=== PATIENT | male | born 1985 | race African-American/Black ===

== ENCOUNTER 2016-11-16 11:39 | Emergency (ER) | payer OTHER ==
[2016-11-16] MEDS ORDERED: NORMAL SALINE 1000 ML 1,000 ML IV ONE (12:11)
--- NOTE | 2016-11-16 12:13 | ER Document Report ---
ED Medical Screen (RME) - General Chief Complaint: Pain All Over Stated Complaint: CRAMPING ALL OVER Time Seen by Provider: 11/16/16 12:10 Mode of Arrival: Ambulatory Information source: Patient TRAVEL OUTSIDE OF THE [place] IN LAST 30 DAYS: No - HPI Patient complains to provider of: cramping all over, weak Onset: Yesterday - pt has been working outdoors in the heat and feels like he's taking in adequate fluids but still feels thirsty and has been cramping in arms and legs - Related Data Allergies/Adverse Reactions: No Known Allergies Allergy (Verified 11/16/16 11:49) Past Medical History - Social History Chew tobacco use (# tins/day): No Frequency of alcohol use: Occasional Drug Abuse: None - Past Medical History Cardiac Medical History: Reports: Hx Hypertension Neurological Medical History: Reports: Hx Migraine Renal/ Medical History: Denies: Hx Peritoneal Dialysis Musculoskeltal Medical History: Reports Hx Musculoskeletal Trauma - Back pain from previous injuries Surgical Hx: Negative - Immunizations Hx Diphtheria, Pertussis, Tetanus Vaccination: No Physical Exam - Vital signs Vitals: Temp Pulse Resp BP Pulse Ox 97.8 F 81 22 H 135/91 H 99 11/16/16 11:50 11/16/16 11:50 11/16/16 11:50 11/16/16 11:50 11/16/16 11:50 Course - Vital Signs Vital signs: Temp Pulse Resp BP Pulse Ox 97.8 F 81 22 H 135/91 H 99 11/16/16 11:50 11/16/16 11:50 11/16/16 11:50 11/16/16 11:50 11/16/16 11:50
[2016-11-16 12:55] LABS: ABSOLUTE EOSINOPHILS # (AUTO) 0.2 10^3/uL (0.0-0.6); ABSOLUTE LYMPHOCYTES (AUTO) 2.4 10^3/uL (0.5-4.7); ABSOLUTE MONOCYTES (AUTO) 0.6 10^3/uL (0.1-1.4); ABSOLUTE NEUT (AUTO) 4.1 10^3/uL (1.7-8.2); BASOPHILS % (AUTO) 0.7 % (0-2); EOSINOPHILS % (AUTO) 2.8 % (0-6); HEMOGLOBIN 14.9 g/dL (13.5-17.0); HGB HCT DIFFERENCE -0.3; LYMPHOCYTES % (AUTO) 33.1 % (13-45); MEAN CORPUSCULAR HEMOGLOBIN 27.6 pg (27.0-33.4); MEAN CORPUSCULAR VOLUME 84 fl (80-97); MONOCYTES % (AUTO) 7.9 % (3-13); RED BLOOD COUNT 5.39 10^6/uL (4.35-5.55); RED CELL DISTRIBUTION WIDTH 14.3 % (11.5-14.0); SEGMENTED NEUTROPHILS % (AUTO) 55.5 % (42-78); WHITE BLOOD COUNT 7.3 10^3/uL (4.0-10.5)
[2016-11-16 13:07] LABS: ADD ON TESTING BLD IN LAB ACKNOWLEDGE
--- NOTE | 2016-11-16 13:08 | ER Document Report ---
ED General - General Mode of Arrival: Ambulatory Information source: Patient TRAVEL OUTSIDE OF THE [place] IN LAST 30 DAYS: No - HPI Onset: Yesterday - Refer to HPI notes Similar symptoms previously: No Recently seen / treated by doctor: No <FAITH AVALOS - Last Filed: 11/16/16 13:15> <NASH VICKERS - Last Filed: 11/16/16 14:34> - General Chief Complaint: Pain All Over Stated Complaint: CRAMPING ALL OVER Time Seen by Provider: 11/16/16 12:10 Notes: Patient is a 31-year-old male presented to the emergency department for body aches and cramping. Patient also complains of nausea and feeling thirsty. Patient symptoms onset yesterday and continued today. Patient states he has been drinking of water however he has decreased urination throughout the day. Patient works with [employer] and has been working outside this week. Patient denies any vomiting. Patient complains of muscle cramping to his arms and legs. Patient has a history of hypertension and sleep-apnea. Patient has no known allergies. (FAITH AVALOS) - Related Data Allergies/Adverse Reactions: No Known Allergies Allergy (Verified 11/16/16 11:49) Past Medical History - General Information source: Patient - Social History Smoking Status: Never Smoker Cigarette use (# per day): No Chew tobacco use (# tins/day): No Frequency of alcohol use: Occasional Drug Abuse: None Family History: None Patient has suicidal ideation: No Patient has homicidal ideation: No - Past Medical History Cardiac Medical History: Reports: Hx Hypertension Neurological Medical History: Reports: Hx Migraine Musculoskeltal Medical History: Reports Hx Musculoskeletal Trauma - Back pain from previous injuries Surgical Hx: Negative - Immunizations Hx Diphtheria, Pertussis, Tetanus Vaccination: No <FAITH AVALOS - Last Filed: 11/16/16 13:15> Review of Systems - Review of Systems Constitutional: See HPI EENT: No symptoms reported Cardiovascular: No symptoms reported Respiratory: No symptoms reported Gastrointestinal: No symptoms reported Genitourinary: See HPI Male Genitourinary: No symptoms reported Musculoskeletal: See HPI Skin: No symptoms reported Hematologic/Lymphatic: No symptoms reported Neurological/Psychological: No symptoms reported -: Yes All other systems reviewed and negative <FAITH AVALOS - Last Filed: 11/16/16 13:15> Physical Exam - Vital signs Interpretation: Normal <JAMESONMELVINA LORAINE - Last Filed: 11/16/16 13:15> <NASH VICKERS - Last Filed: 11/16/16 14:34> - Vital signs Vitals: Temp Pulse Resp BP Pulse Ox 97.8 F 81 22 H 135/91 H 99 11/16/16 11:50 11/16/16 11:50 11/16/16 11:50 11/16/16 11:50 11/16/16 11:50 - Notes Notes: GENERAL: Alert, interacts well. No acute distress. HEAD: Normocephalic, atraumatic. EYES: Appear normal. Pupils equal, round, and reactive to light. ENT: Moist mucus membranes, tongue midline. NECK: Full range of motion. Supple. Trachea midline. LUNGS: Clear to auscultation bilaterally, no wheezes, rales, or rhonchi. No respiratory distress. HEART: Regular rate and rhythm. No murmurs, gallops, or rubs. ABDOMEN: Obese. Soft, non-tender. Non-distended. Normal bowel sounds. EXTREMITIES: Moves all 4 extremities spontaneously. Normal strength. No edema. NEUROLOGICAL: Alert and oriented x3. Normal speech. No focal neurological deficits. GSC 15. PSYCH: Normal affect, normal mood. SKIN: Warm, dry, normal turgor. No rashes or lesions noted. (FAITH AVALOS) Course - Laboratory Result Diagrams: 11/16/16 12:30 11/16/16 12:30 <FAITH AVALOS - Last Filed: 11/16/16 13:15> - Laboratory Result Diagrams: 11/16/16 12:30 11/16/16 12:30 <NASH VICKERS - Last Filed: 11/16/16 14:34> - Re-evaluation Re-evalutation: 11/16/16 14:32 Patient is feeling better after 1/2 L of IV fluids. Long discussion about hydrating prior to going to work, during work and especially after he gets off work. (NASH VICKERS) - Vital Signs Vital signs: Temp Pulse Resp BP Pulse Ox 97.8 F 81 22 H 135/91 H 99 11/16/16 11:50 11/16/16 11:50 11/16/16 11:50 11/16/16 11:50 11/16/16 11:50 - Laboratory Laboratory results interpreted by me: 11/16/16 11/16/16 12:30 12:30 RDW 14.3 H Creatine Kinase 243 H Discharge <FAITH AVALOS - Last Filed: 11/16/16 13:15> <NASH VICKERS - Last Filed: 11/16/16 14:34> - Discharge Clinical Impression: Dehydration, Muscle cramps Condition: Stable Disposition: HOME, SELF-CARE Additional Instructions: Dehydration: Dehydration can result from vomiting or diarrhea, fever, or decreased intake of fluids. If severe, hospitalization and intravenous fluids may be required. Most cases are treated at home with fluids by mouth. For the next 24 hours, drink lots of clear fluids. In mild cases, this can be soda pop or sports drinks. For more severe dehydration, the doctor may recommend special fluids such as Pedialyte or Lytren. Try to get three liters ( 3 quarts) of fluid per day. If vomiting occurs, continue to drink the fluids frequently (every 15 to 20 minutes), but in small amounts (one or two ounces). Depending on the type of dehydration, the doctor may prescribe antinausea medicine or potassium replacements. Call the doctor or return for re-examination if you become progressively weak, vomit repeatedly, or have other new symptoms. DRINK PLENTY OF WATER BEFORE GOING TO WORK, DURING THE DAY, AND WHEN YOU GET OFF IN THE EVENING. RETURN TO THE EMERGENCY ROOM IF ANY NEW OR WORSENING SYMPTOMS. Referrals: WALTER JIMÉNEZ FNP [Primary Care Provider] - Follow up as needed Scribe Attestation: 11/16/16 14:34 I personally performed the services described in the documentation, reviewed and edited the documentation which was dictated to the scribe in my presence, and it accurately records my words and actions. (NASH VICKERS) Scribe Documentation - Scribe Written by Gil:: Gil Mensah, 11/16/2016 13:20 acting as scribe for :: Kiley <FAITH AVALOS - Last Filed: 11/16/16 13:15>
[2016-11-16 13:19] LABS: CREATINE KINASE 243 U/L (55-170)
[2016-11-16 13:23] LABS: ALANINE AMINOTRANSFERASE 55 U/L (21-72); ALBUMIN 4.5 g/dL (3.5-5.0); ALKALINE PHOSPHATASE 74 U/L (38-126); ANION GAP 9 (5-19); ASPARTATE AMINO TRANSFERASE 39 U/L (17-59); BILIRUBIN,DIRECT 0.3 mg/dL (0.0-0.4); BILIRUBIN,TOTAL 0.6 mg/dL (0.2-1.3); BLOOD UREA NITROGEN 8 mg/dL (7-20); CALCIUM 9.3 mg/dL (8.4-10.2); CARBON DIOXIDE 30 mmol/L (22-30); CHLORIDE 102 mmol/L (98-107); CREATININE RESULT 0.69 mg/dL (0.52-1.25); GLUCOSE 81 mg/dL (75-110); POTASSIUM 4.5 mmol/L (3.6-5.0); SODIUM 141.3 mmol/L (137-145); TOTAL PROTEIN 7.8 g/dL (6.3-8.2)
[2016-11-16 13:26] LABS: APPEARANCE,URINE CLEAR; BILIRUBIN,URINE NEGATIVE (NEGATIVE); GLUCOSE, URINE NEGATIVE (NEGATIVE); KETONES,URINE NEGATIVE (NEGATIVE); LEUKOCYTE ESTERASE,URINE NEGATIVE (NEGATIVE); NITRITE,URINE NEGATIVE (NEGATIVE); PROTEIN,URINE NEGATIVE (NEGATIVE); URINE SPECIFIC GRAVITY 1.017; UROBILINOGEN,URINE NEGATIVE mg/dL (<2.0)
[2016-11-16] MEDS ORDERED: DEXTROSE 5%-NORMAL SALINE 1,000 ML IV ONE (13:39)
[2016-11-16 15:40] VITALS: BP 137/80
== END 2016-11-16 15:00 | disposition home or self-care (01) ==
LOC: ER 11:39
DX: E86.0 Dehydration (principal); R25.2 Cramp and spasm; R11.0 Nausea; I10 Essential (primary) hypertension
CPT/HCPCS: 99283; 96360; 36415; 82550; 85025; 80053; 81001; J7030

== ENCOUNTER 2017-04-20 05:19 | Emergency (ER) | payer OTHER ==
[2017-04-20 05:29] VITALS: BP 143/85
[2017-04-20] MEDS ORDERED: IPRATROPIUM/ALBUTEROL 0.5-2.5 MG/3 ML AMPUL NEB ONE (06:01)
[2017-04-20] MEDS ORDERED: ACETAMINOPHEN 325 MG TABLET PO ONE (06:02)
--- NOTE | 2017-04-20 06:05 | ER Document Report ---
ED General <CARRILLO FRANCOISEN - Last Filed: 04/20/17 09:41> - General Mode of Arrival: Ambulatory Information source: Patient TRAVEL OUTSIDE OF THE [place] IN LAST 30 DAYS: No <CINDY VEGAS - Last Filed: 04/20/17 14:14> - General Chief Complaint: Fever Stated Complaint: FLU LIKE SYMPTOMS Notes: 32-year-old morbidly obese male coming in complaining of dry cough, feeling like a truck hit him, and fever since night. He had pneumonia less than 10 years ago and when he was a baby. He has sleep apnea and uses CPAP. He does not feel short of breath. No chest pain. No leg pain. (CINDY VEGAS) - Related Data Allergies/Adverse Reactions: No Known Allergies Allergy (Verified 11/16/16 11:49) Home Medications: Current Home Medications Amlodipine Bes/Olmesartan Med [Mihir 10-20 mg Tablet] 10 mg PO DAILY 04/20/17 [ History] Topiramate [Topamax 25 mg Tablet] 25 mg PO DAILY 04/20/17 [History] Past Medical History - General Information source: Patient - Social History Smoking Status: Never Smoker Chew tobacco use (# tins/day): No Frequency of alcohol use: Social Drug Abuse: None Lives with: Family Family History: None Patient has suicidal ideation: No Patient has homicidal ideation: No - Past Medical History Cardiac Medical History: Reports: Hx Hypertension Neurological Medical History: Reports: Hx Migraine Renal/ Medical History: Denies: Hx Peritoneal Dialysis Musculoskeltal Medical History: Reports Hx Musculoskeletal Trauma - Back pain from previous injuries - Immunizations Hx Diphtheria, Pertussis, Tetanus Vaccination: No <CINDY VEGAS - Last Filed: 04/20/17 14:14> Review of Systems - Review of Systems Constitutional: See HPI EENT: No symptoms reported Cardiovascular: No symptoms reported Respiratory: See HPI Gastrointestinal: No symptoms reported Genitourinary: No symptoms reported Male Genitourinary: No symptoms reported Musculoskeletal: No symptoms reported Skin: No symptoms reported Hematologic/Lymphatic: No symptoms reported Neurological/Psychological: No symptoms reported <CINDY VEGAS - Last Filed: 04/20/17 14:14> Physical Exam - Vital signs Interpretation: Tachycardic - 113, Hypoxic - pulse ox 93-94%, Febrile - 99.7 - General General appearance: Appears well, Alert In distress: None - HEENT Head: Normocephalic, Atraumatic Eyes: Normal Conjunctiva: Normal Pupils: PERRL Tympanic membrane: Other - cerumen impaction bilaterally Nasal: Normal Pharynx: Erythema Neck: Supple. No: Lymphadenopathy - Respiratory Respiratory status: No respiratory distress Chest status: Nontender Breath sounds: Normal Chest palpation: Normal - Cardiovascular Rhythm: Regular Heart sounds: Normal auscultation Murmur: No - Abdominal Inspection: Normal Distension: No distension Bowel sounds: Normal Tenderness: Nontender. No: Tender Organomegaly: No organomegaly - Back Back: Normal, Nontender - Extremities General upper extremity: Normal inspection, Nontender, Normal color, Normal ROM , Normal temperature General lower extremity: Normal inspection, Nontender, Normal color, Normal ROM , Normal temperature, Normal weight bearing. No: Barber's sign - Neurological Neuro grossly intact: Yes Cognition: Normal Orientation: AAOx4 [place] Coma Scale Eye Opening: Spontaneous [place] Coma Scale Verbal: Oriented [place] Coma Scale Motor: Obeys Commands [place] Coma Scale Total: 15 Speech: Normal Motor strength normal: LUE, RUE, LLE, RLE Sensory: Normal - Psychological Associated symptoms: Normal affect, Normal mood - Skin Skin Temperature: Warm Skin Moisture: Dry Skin Color: Normal Skin irregularity: negative: Rash <CINDY VEGAS - Last Filed: 04/20/17 14:14> - Vital signs Vitals: Temp Pulse Resp BP Pulse Ox 99.7 F 113 H 22 H 143/85 H 94 04/20/17 05:28 04/20/17 05:28 04/20/17 05:28 04/20/17 05:28 04/20/17 05:28 Course - Laboratory Result Diagrams: 04/20/17 07:00 04/20/17 07:00 - Diagnostic Test Radiology reviewed: Image reviewed, Reports reviewed <ARACELY FRANCOIS - Last Filed: 04/20/17 09:41> - Laboratory Result Diagrams: 04/20/17 07:00 04/20/17 07:00 <CINDY VEGAS - Last Filed: 04/20/17 14:14> - Re-evaluation Re-evalutation: 04/20/17 08:35 Patient is a 32-year-old male who was signed out to me by night nurse practitioner Cindy Vegas. Patient's presentation is consistent with early pneumonia given chest x-ray findings and presentation. Patient ambulated in the department on pulse ox went down to about 92%. Patient clinically states he feels much better than when he arrived. Heart rate has come down to 103. Responding well to IV fluids. 04/20/17 09:41 Patient did receive another reading treatment and ambulate in the department. Heart rate maintained in the high 90s and patient no longer tachypneic. Will discharge home with a course of Levaquin strict return precautions otherwise to follow-up with primary care this week. Patient expresses understanding and is stable for discharge home. (ARACELY FRANCOIS) 04/20/17 14:13 late entry: care transferred to Aracely BUENO at 0705 at the bedside. ( CINDY VEGAS) - Vital Signs Vital signs: Temp Pulse Resp BP Pulse Ox 99.2 F 104 H 17 143/85 H 94 04/20/17 09:10 04/20/17 09:10 04/20/17 09:10 04/20/17 05:28 04/20/17 09:10 - Laboratory Laboratory results interpreted by me: 04/20/17 04/20/17 07:00 07:00 RDW 14.5 H Glucose 140 H Discharge <ARACELY FRANCOIS - Last Filed: 04/20/17 09:41> <CINDY VEGAS - Last Filed: 04/20/17 14:14> - Discharge Clinical Impression: Pneumonia Qualifiers: Pneumonia type: due to unspecified organism Laterality: right Lung location: lower lobe of lung Qualified Code(s): J18.1 - Lobar pneumonia, unspecified organism Condition: Good Disposition: HOME, SELF-CARE Additional Instructions: Please follow-up with [facility] on Friday or for recheck. Otherwise return to the emergency department with any worsening shortness of breath, chest pain, fevers of 103 not responding to Tylenol. PNEUMONIA: Your examination indicates that you have pneumonia. This is an infection of the lung tissue, usually caused by bacteria or a virus. Symptoms include cough, fever, shaking chills, chest pain, shortness of breath, and coughing up bloody sputum. Treatment for bacterial pneumonia includes rest, antibiotics for 10 to 14 days, increasing your clear liquid intake, a cool mist humidifier at your bedside, and fever medication. Often, a repeat chest X-ray is performed in a few weeks--even if you feel better--to ascertain whether the infection has completely resolved and no underlying lung problem is present. You should call the physician if you develop persistent vomiting, high fever that does not respond to fever medication, increasing shortness of breath , confusion, or lethargy. Also, failure to improve within two to three days is an indication for re-examination. ANTIBIOTIC THERAPY: You have been given an antibiotic prescription. It's important that you take all the medication, unless instructed otherwise by your physician. Failure to complete the entire course can result in relapse of your condition. Common side effects of antibiotics include nausea, intestinal cramping, or diarrhea. Women may develop vaginal yeast infections, and babies can get yeast (thrush) in the mouth following the use of antibiotics. Contact your physician if you develop significant side effects from this medication. Allergy to this antibiotic can result in hives, wheezing, faintness, or itching. If symptoms of allergy occur, stop the medication and call the doctor. LEVOFLOXACIN: You have been given an antibacterial agent, levofloxacin (Levaquin). This medicine is not related to the penicillins, sulfas, cephalosporins, or tetracyclines. It is often given to patients who are allergic to these drugs. It has been chosen for you either because other drugs are not appropriate, or because of the nature of your problem. Levaquin should not be taken with antacids, as these can decrease its effectiveness. It can be taken without regard to meals. LEVAQUIN SHOULD NOT BE TAKEN BY CHILDREN, NURSING WOMEN, OR WOMEN. Although Levaquin is usually well-tolerated, common side effects can include nausea and diarrhea. Contact your doctor if you experience any unusual symptoms while on this medication, such as joint pain or swelling, shortness of breath, wheezing, faintness, or hives. USE OF ACETAMINOPHEN (Tylenol): Acetaminophen may be taken for pain relief or fever control. It's much safer than aspirin, offering a wider range of "safe" dosages. It is safe during . Some brand names are Tylenol, Panadol, Datril, Anacin 3, Tempra, and Liquiprin. Acetaminophen can be repeated every four hours. The following are maximum recommended dosages: WEIGHT Dose Drops Elixir Chewable( 80mg) (LBS.) [place]=droppers tsp=teaspoon 6 40 mg 0.4 ml (1/2) 6-11 80 mg 0.8 ml (full) tsp 1 tab 12-16 120 mg 1 1/2 drprs 3/4 tsp 1 1/2 tabs 17-23 160 mg 2 drprs 1 tsp 2 tabs 24-30 240 mg 3 drprs 1 1/2 tsp 3 tabs 30-35 320 mg 2 tsp 4 tabs 36-41 360 mg 2 1/4 tsp 4 1/2 tabs 42-47 400 mg 2 1/2 tsp 5 tabs 48-53 480 mg 3 tsp 6 tabs 54-59 520 mg 3 1/4 tsp 6 1/2 tabs 60-64 560 mg 3 1/2 tsp 7 tabs 65-70 600 mg 3 3/4 tsp 7 1/2 tabs 71-76 640 mg 4 tsp 8 tabs 77-82 720 mg 4 1/2 tsp 9 tabs 83-88 800 mg 5 tsp 10 tabs >89 pounds or adults 650 mg to 900 mg Acetaminophen can be repeated every four hours. Maximum dose not to exceed 4000 mg a day. These maximum recommended dosages are slightly higher than the dosages written on the product container, but these dosages are very safe and below the toxic dosage for acetaminophen. FOLLOW-UP CARE: If you have been referred to a physician for follow-up care, call the physician s office for an appointment as you were instructed or within the next two days. If you experience worsening or a significant change in your symptoms, notify the physician immediately or return to the Emergency Department at any time for re-evaluation. How to use the incentive spirometer 1.Sit on the edge of your bed if possible, or sit up as far as you can in bed. 2.Hold the incentive spirometer in an upright position. 3.Place the mouthpiece in your mouth and seal your lips tightly around it. 4.Breathe in slowly and as deeply as possible. Notice the yellow piston rising toward the top of the column. The yellow indicator should reach the blue outlined area. 5.Hold your breath as long as possible. Then exhale slowly and allow the piston to fall to the bottom of the column. 6.Rest for a few seconds and repeat steps one to five at least 10 times every hour. 7.Position the yellow indicator on the left side of the spirometer to show your best effort. Use the indicator as a goal to work toward during each slow deep breath. 8.After each set of 10 deep breaths, cough to be sure your lungs are clear. If you have an incision, support your incision when coughing by placing a pillow firmly against it. 9.Once you are able to get out of bed safely, take frequent walks and practice the cough. Prescriptions: Albuterol Sulfate [Proair HFA Inhalation Aerosol 8.5 gm MDI] 1 puff IH Q4 PRN # 1 mdi PRN Reason: Levofloxacin [Levaquin] 750 mg PO DAILY #5 tablet Referrals: WALTER JIMÉNEZ FNP [NURSE PRACTITIONER] - Follow up in 3-5 days
[2017-04-20] MEDS ORDERED: LEVOFLOXACIN 750 MG TABLET PO ONE (06:19)
--- NOTE | 2017-04-20 06:27 | RADIOLOGY REPORT (SQ) ---
EXAM DESCRIPTION: CHEST PA/LAT CLINICAL HISTORY: cough, fever, sob COMPARISON: None. FINDINGS: Frontal and lateral views of the chest. The cardiomediastinal silhouette has normal size and contour. Patchy right basilar opacities. No pneumothorax or pleural effusion. No displaced rib fractures identified. Upper abdominal soft tissues are unremarkable. IMPRESSION: 1. Patchy right basilar opacities may be related to atelectasis or developing pneumonia.
[2017-04-20] MEDS ORDERED: NORMAL SALINE 1000 ML 1,000 ML IV ONE (06:31)
[2017-04-20 07:33] LABS: ABSOLUTE EOSINOPHILS # (AUTO) 0.1 10^3/uL (0.0-0.6); ABSOLUTE LYMPHOCYTES (AUTO) 0.9 10^3/uL (0.5-4.7); ABSOLUTE MONOCYTES (AUTO) 0.7 10^3/uL (0.1-1.4); BASOPHILS % (AUTO) 0.5 % (0-2); EOSINOPHILS % (AUTO) 1.4 % (0-6); HEMATOCRIT 44.2 % (37.9-51.0); HEMOGLOBIN 15.1 g/dL (13.5-17.0); HGB HCT DIFFERENCE 1.1; LYMPHOCYTES % (AUTO) 13.4 % (13-45); MEAN CORPUSCULAR HEMOGLOBIN 28.1 pg (27.0-33.4); MEAN CORPUSCULAR HGB CONC 34.2 g/dL (32.0-36.0); MEAN CORPUSCULAR VOLUME 82 fl (80-97); MONOCYTES % (AUTO) 10.3 % (3-13); RED BLOOD COUNT 5.39 10^6/uL (4.35-5.55); RED CELL DISTRIBUTION WIDTH 14.5 % (11.5-14.0); SEGMENTED NEUTROPHILS % (AUTO) 74.4 % (42-78); WHITE BLOOD COUNT 6.8 10^3/uL (4.0-10.5)
[2017-04-20 07:59] LABS: ALANINE AMINOTRANSFERASE 58 U/L (21-72); ALBUMIN 4.5 g/dL (3.5-5.0); ALKALINE PHOSPHATASE 75 U/L (38-126); ANION GAP 14 (5-19); ASPARTATE AMINO TRANSFERASE 35 U/L (17-59); BILIRUBIN,DIRECT 0.2 mg/dL (0.0-0.4); BILIRUBIN,TOTAL 0.6 mg/dL (0.2-1.3); BLOOD UREA NITROGEN 7 mg/dL (7-20); CARBON DIOXIDE 26 mmol/L (22-30); CHLORIDE 100 mmol/L (98-107); CREATININE RESULT 0.69 mg/dL (0.52-1.25); GLUCOSE 140 mg/dL (75-110); POTASSIUM 4.1 mmol/L (3.6-5.0); SODIUM 139.5 mmol/L (137-145); TOTAL PROTEIN 7.2 g/dL (6.3-8.2)
[2017-04-20] MEDS ORDERED: ALBUTEROL SULFATE 0.083% NEB 2.5 MG/3 ML AMPUL NEB ONE (08:35)
== END 2017-04-20 10:05 | disposition home or self-care (01) ==
LOC: ER 05:19
DX: J18.1 Lobar pneumonia, unspecified organism (principal); R50.9 Fever, unspecified; R05 Cough; Z79.899 Other long term (current) drug therapy
CPT/HCPCS: 94640 ×2; 99284; 36415; 87040; 85025; 87077; 80053; 87804; 71020; J7620

== ENCOUNTER 2017-04-20 20:26 | Emergency (ER) | payer OTHER ==
[2017-04-20 20:32] VITALS: BP 141/84
== END 2017-04-20 21:00 | disposition left against medical advice (07) ==
LOC: ER 20:26
DX: Z53.21 Procedure and treatment not carried out due to patient leaving prior to being seen by health care provider (principal)

== ENCOUNTER 2017-06-22 05:17 | Emergency (ER) | payer OTHER ==
--- NOTE | 2017-06-22 08:07 | ER Document Report ---
ED General - General Chief Complaint: Chest Congestion Stated Complaint: CONGESTION Time Seen by Provider: 06/22/17 06:39 TRAVEL OUTSIDE OF THE [place] IN LAST 30 DAYS: No - HPI Patient complains to provider of: Cough chest congestion Notes: Patient coming in for evaluation of cough ongoing for approximately 1 week. States that he has been having intermittent white to yellow sputum. Denies any fever chills nausea vomiting denies any recent travel. Patient resting comfortably on my evaluation. Denies smoking denies any other past medical history is of hypertension. Patient states he has been trying to use Mucinex however no relief. - Related Data Allergies/Adverse Reactions: No Known Allergies Allergy (Verified 06/22/17 05:24) Past Medical History - Social History Smoking Status: Never Smoker Chew tobacco use (# tins/day): No Frequency of alcohol use: Rare Drug Abuse: Marijuana Family History: None Patient has suicidal ideation: No Patient has homicidal ideation: No - Past Medical History Cardiac Medical History: Reports: Hx Hypertension Neurological Medical History: Reports: Hx Migraine Renal/ Medical History: Denies: Hx Peritoneal Dialysis Musculoskeltal Medical History: Reports Hx Musculoskeletal Trauma - Back pain from previous injuries - Immunizations Hx Diphtheria, Pertussis, Tetanus Vaccination: No Review of Systems - Review of Systems Constitutional: No symptoms reported EENT: No symptoms reported Cardiovascular: No symptoms reported Respiratory: Cough Gastrointestinal: No symptoms reported Genitourinary: No symptoms reported Male Genitourinary: No symptoms reported Musculoskeletal: No symptoms reported Skin: No symptoms reported Hematologic/Lymphatic: No symptoms reported Neurological/Psychological: No symptoms reported -: Yes All other systems reviewed and negative Physical Exam - Vital signs Vitals: Temp Pulse Resp BP Pulse Ox 98.5 F 91 16 132/82 H 98 06/22/17 08:26 06/22/17 08:26 06/22/17 08:26 06/22/17 08:26 06/22/17 08:26 Interpretation: Normal - General General appearance: Appears well, Alert - HEENT Head: Normocephalic, Atraumatic Eyes: Normal Pupils: PERRL - Respiratory Respiratory status: No respiratory distress Chest status: Nontender Breath sounds: Normal Chest palpation: Normal - Cardiovascular Rhythm: Regular Heart sounds: Normal auscultation Murmur: No - Abdominal Inspection: Normal Distension: No distension Bowel sounds: Normal Tenderness: Nontender Organomegaly: No organomegaly - Back Back: Normal, Nontender - Extremities General upper extremity: Normal inspection, Nontender, Normal color, Normal ROM , Normal temperature General lower extremity: Normal inspection, Nontender, Normal color, Normal ROM , Normal temperature, Normal weight bearing. No: Barber's sign - Neurological Neuro grossly intact: Yes Cognition: Normal Orientation: AAOx4 [place] Coma Scale Eye Opening: Spontaneous [place] Coma Scale Verbal: Oriented [place] Coma Scale Motor: Obeys Commands [place] Coma Scale Total: 15 Speech: Normal Motor strength normal: LUE, RUE, LLE, RLE Sensory: Normal - Psychological Associated symptoms: Normal affect, Normal mood - Skin Skin Temperature: Warm Skin Moisture: Dry Skin Color: Normal Course - Re-evaluation Re-evalutation: 06/22/17 13:39 Chest x-ray showed no signs of pneumonia. Patient will be given cost present medications more likely viral upper URI. Patient will be discharged home. - Vital Signs Vital signs: Temp Pulse Resp BP Pulse Ox 98.5 F 91 16 132/82 H 98 06/22/17 08:26 06/22/17 08:26 06/22/17 08:26 06/22/17 08:26 06/22/17 08:26 Discharge - Discharge Clinical Impression: URI (upper respiratory infection) Qualifiers: URI type: unspecified URI Qualified Code(s): J06.9 - Acute upper respiratory infection, unspecified Disposition: HOME, SELF-CARE Instructions: Oral Narcotic Medication ([facility]), Upper Respiratory Illness ([facility]) Additional Instructions: Take medications as prescribed. Follow-up with your primary care physician. Would recommend talking with her pharmacist about possibly using Coricidin HBP for cough control. He may also try honey and your favorite beverage to help out with cough control. Your chest x-ray does not show any signs of pneumonia more likely this is a viral illness even when the viral illness runs its course he may continue to call for approximately 3-4 weeks afterwards. Return to the ER immediately if you develop a fever for 24 hours greater than 101. Prescriptions: Acetaminophen with Codeine [Tylenol #3 Tablet] 1 each PO Q6HP PRN #20 tablet PRN Reason: Prednisone [Deltasone 20 mg Tablet] 3 tab PO DAILY 5 Days tablet Forms: Return to Work Referrals: TINO,WALTER, [employer] [Primary Care Provider] - Follow up as needed
--- NOTE | 2017-06-22 08:08 | RADIOLOGY REPORT (SQ) ---
EXAM DESCRIPTION: CHEST PA/LAT COMPLETED DATE/TIME: 06/22/2017 7:07 am REASON FOR STUDY: sob COMPARISON: 04/20/2017. EXAM PARAMETERS: NUMBER OF VIEWS: two views TECHNIQUE: Digital Frontal and Lateral radiographic views of the chest acquired. RADIATION DOSE: NA LIMITATIONS: none FINDINGS: LUNGS AND PLEURA: Interval resolution of right middle lobe infiltrate. The lung collins ar e clear of acute infiltrates or effusions. MEDIASTINUM AND HILAR STRUCTURES: No masses or contour abnormalities. HEART AND VASCULAR STRUCTURES: The heart is normal. The pulmonary vasculature is normal. BONES: No acute findings. HARDWARE: None in the chest. OTHER: No other significant finding. IMPRESSION: NO ACUTE DISEASE. TECHNICAL DOCUMENTATION: JOB ID: [id number] [employer]- All Rights Reserved
[2017-06-22 08:29] VITALS: BP 132/82
== END 2017-06-22 08:13 | disposition home or self-care (01) ==
LOC: ER 05:17
DX: J06.9 Acute upper respiratory infection, unspecified (principal); R05 Cough; I10 Essential (primary) hypertension
CPT/HCPCS: 71046; 99283

== ENCOUNTER 2018-02-22 13:40 | Emergency (ER) | payer OTHER ==
--- NOTE | 2018-02-22 13:54 | ER Document Report ---
ED Medical Screen (RME) - General Chief Complaint: Abdominal Pain Stated Complaint: SIDE PAIN Time Seen by Provider: 02/22/18 13:54 TRAVEL OUTSIDE OF THE [place] IN LAST 30 DAYS: No - HPI Patient complains to provider of: Abdominal pain and vomiting Onset: Other - 32-year-old morbidly obese man who presents for evaluation after having eaten a Larry yobany's bowl this morning prior to which he was in his normal state of health and began to have acute right upper quadrant abdominal pain which radiated down the right side. - Related Data Allergies/Adverse Reactions: No Known Allergies Allergy (Verified 02/22/18 14:02) Past Medical History - Past Medical History Cardiac Medical History: Reports: Hx Hypertension Neurological Medical History: Reports: Hx Migraine Renal/ Medical History: Denies: Hx Peritoneal Dialysis Musculoskeltal Medical History: Reports Hx Musculoskeletal Trauma - Back pain from previous injuries - Immunizations Hx Diphtheria, Pertussis, Tetanus Vaccination: No Physical Exam - Vital signs Vitals: Temp Pulse Resp BP Pulse Ox 98.5 F 92 20 149/91 H 96 02/22/18 13:50 02/22/18 13:50 02/22/18 13:50 02/22/18 13:50 02/22/18 13:50 Course - Re-evaluation Re-evalutation: 02/22/18 15:57 I have greeted and performed a rapid initial assessment of this patient. A comprehensive ED assessment and evaluation of the patient, analysis of test results and completion of the medical decision making process will be conducted by additional ED providers - Vital Signs Vital signs: Temp Pulse Resp BP Pulse Ox 98.5 F 92 20 149/91 H 96 02/22/18 13:50 02/22/18 13:50 02/22/18 13:50 02/22/18 13:50 02/22/18 13:50 - Laboratory Result Diagrams: 02/22/18 14:22 02/22/18 14:22 Doctor's Discharge - Discharge Referrals: WALTER JIMÉNEZ FNP [Primary Care Provider] - Follow up as needed
[2018-02-22] MEDS ORDERED: NORMAL SALINE 1000 ML 1,000 ML IV ONE (14:01)
[2018-02-22] MEDS ORDERED: ONDANSETRON HCL INJ/PF 4 MG/2 ML SDV IV ONE (14:02)
[2018-02-22] MEDS ORDERED: MORPHINE SULFATE 10 MG/ML INJ IV ONE (14:03)
[2018-02-22 14:43] LABS: ABSOLUTE BASOPHILS # (AUTO) 0.1 10^3/uL (0.0-0.2); ABSOLUTE EOSINOPHILS # (AUTO) 0.2 10^3/uL (0.0-0.6); ABSOLUTE LYMPHOCYTES (AUTO) 1.9 10^3/uL (0.5-4.7); ABSOLUTE MONOCYTES (AUTO) 0.6 10^3/uL (0.1-1.4); ABSOLUTE NEUT (AUTO) 4.8 10^3/uL (1.7-8.2); BASOPHILS % (AUTO) 0.7 % (0-2); EOSINOPHILS % (AUTO) 2.5 % (0-6); HEMATOCRIT 46.9 % (37.9-51.0); HEMOGLOBIN 15.7 g/dL (13.5-17.0); LYMPHOCYTES % (AUTO) 25.4 % (13-45); MEAN CORPUSCULAR HEMOGLOBIN 28.1 pg (27.0-33.4); MEAN CORPUSCULAR HGB CONC 33.5 g/dL (32.0-36.0); MEAN CORPUSCULAR VOLUME 84 fl (80-97); MONOCYTES % (AUTO) 7.8 % (3-13); PLATELET COUNT 217 10^3/uL (150-450); RED BLOOD COUNT 5.59 10^6/uL (4.35-5.55); RED CELL DISTRIBUTION WIDTH 14.1 % (11.5-14.0); SEGMENTED NEUTROPHILS % (AUTO) 63.6 % (42-78); TOTAL CELLS COUNTED % (AUTO) 100 %; WHITE BLOOD COUNT 7.6 10^3/uL (4.0-10.5)
[2018-02-22 15:00] LABS: ALANINE AMINOTRANSFERASE 59 U/L (21-72); ALBUMIN 4.7 g/dL (3.5-5.0); ALKALINE PHOSPHATASE 83 U/L (38-126); ANION GAP 9 (5-19); ASPARTATE AMINO TRANSFERASE 47 U/L (17-59); BILIRUBIN,DIRECT 0.2 mg/dL (0.0-0.4); BILIRUBIN,TOTAL 0.5 mg/dL (0.2-1.3); BLOOD UREA NITROGEN 9 mg/dL (7-20); CALCIUM 9.9 mg/dL (8.4-10.2); CARBON DIOXIDE 31 mmol/L (22-30); CHLORIDE 101 mmol/L (98-107); GLUCOSE 137 mg/dL (75-110); LIPASE 136.7 U/L (23-300); POTASSIUM 4.2 mmol/L (3.6-5.0); SODIUM 140.6 mmol/L (137-145); TOTAL PROTEIN 7.8 g/dL (6.3-8.2)
[2018-02-22 15:05] LABS: ALCOHOL < 10 mg/dL (NONE DETECTED)
--- NOTE | 2018-02-22 15:16 | RADIOLOGY REPORT (SQ) ---
EXAM DESCRIPTION: U/S ABDOMEN LIMITED W/O DOP COMPLETED DATE/TIME: 02/22/2018 2:54 pm REASON FOR STUDY: query cholecystitis COMPARISON: None. TECHNIQUE: Dynamic and static grayscale images acquired of the abdomen and recorded on PACS. Additio nal selected color Doppler and spectral images recorded. LIMITATIONS: Body habitus and intervening bowel gas limit examination. FINDINGS: PANCREAS: The pancreas was not adequately evaluated. LIVER: Hepatic steatosis. No focal masses. LIVER VASCULATURE: Normal directional flow of the main portal vein and hepatic veins. GALLBLADDER: No stones. Normal wall thickness. No pericholecystic fluid. ULTRASOUND-DETECTED CRUZ'S SIGN: Negative. INTRAHEPATIC DUCTS AND COMMON DUCT: CBD and intrahepatic ducts normal caliber. No filling defects. INFERIOR VENA CAVA: Normal flow. AORTA: The proximal aorta was not visualized. The mid and distal aorta demonstrate normal caliber an d tapering. RIGHT KIDNEY: Normal size. Normal echogenicity. No solid or suspicious masses. No hydronephrosis. No calcifications. PERITONEAL AND RIGHT PLEURAL SPACE: No ascites or effusions. OTHER: No other significant findings. IMPRESSION: Limited examination. No evidence of cholecystitis or cholelithiasis. TECHNICAL DOCUMENTATION: JOB ID: [id number] [facility]- All Rights Reserved Reading location - IP/workstation name: [email or web address]
[2018-02-22 16:27] LABS: APPEARANCE,URINE SLIGHTLY-CLOUDY; BILIRUBIN,URINE NEGATIVE (NEGATIVE); COLOR,URINE YELLOW; GLUCOSE, URINE NEGATIVE (NEGATIVE); KETONES,URINE NEGATIVE (NEGATIVE); LEUKOCYTE ESTERASE,URINE NEGATIVE (NEGATIVE); NITRITE,URINE NEGATIVE (NEGATIVE); PROTEIN,URINE 100 mg/dL (NEGATIVE); URINE SPECIFIC GRAVITY 1.015
--- NOTE | 2018-02-22 17:53 | RADIOLOGY REPORT (SQ) ---
EXAM DESCRIPTION: CT ABD/PELVIS NO ORAL OR IV COMPLETED DATE/TIME: 02/22/2018 5:20 pm REASON FOR STUDY: right lower quad pain with R flank pain COMPARISON: Abdominal ultrasound 02/22/2018 TECHNIQUE: CT scan of the abdomen and pelvis performed without intravenous or oral contrast. Images reviewed with lung, soft tissue, and bone windows. Reconstructed coronal and sagittal MPR images revi ewed. All images stored on PACS. All CT scanners at this facility use dose modulation, iterative reconstruction, and/or weight based d osing when appropriate to reduce radiation dose to as low as reasonably achievable (ALARA). [facility]: Dose Right [facility]: CareDose [facility]: Dose Right [facility]: Teradose 4D [facility]: Smart Seniorlink RADIATION DOSE: CT Rad equipment meets quality standard of care and radiation dose reduction techniq ues were employed. CTDIvol: 30.0 mGy. DLP: 1639 mGy-cm.mGy. LIMITATIONS: None. FINDINGS: On axial image 82, and coronal image 57, a 3 mm calculus is present in the distal right ur eter, causing mild right hydronephrosis and hydroureter. No other right-sided intrarenal or ureteral calculi. No right renal masses or cysts. LOWER CHEST: No significant findings. No nodules or infiltrates. NON-CONTRASTED LIVER, SPLEEN, ADRENALS: Fatty liver. Spleen and adrenal glands are unremarkable. PANCREAS: No masses. No peripancreatic inflammatory changes. GALLBLADDER: No identified stones by CT criteria. No inflammatory changes to suggest cholecystitis. RIGHT KIDNEY AND URETER: As above LEFT KIDNEY AND URETER: No suspicious masses. Assessment limited by lack of IV contrast. No signifi cant calcifications. No hydronephrosis or hydroureter. AORTA AND RETROPERITONEUM: No aneurysm. No retroperitoneal masses or adenopathy. BOWEL AND PERITONEAL CAVITY: No obvious masses or inflammatory changes. No free fluid. APPENDIX: Normal. PELVIS, BLADDER, AND ABDOMINAL WALL:No abnormal masses. No free fluid. Bladder normal. BONES: No significant findings. OTHER: No other significant finding. IMPRESSION: 3 mm distal right ureteral stone with very mild right hydronephrosis and hydroureter. COMMENT: Quality ID # [id number]: Final reports with documentation of one or more dose reduction techniques (e.g., Automated exposure control, adjustment of the mA and/or kV according to patient size, use of iterative reconstruction technique) TECHNICAL DOCUMENTATION: JOB ID: [id number] [employer]- All Rights Reserved Reading location - IP/workstation name: [email or web address]
--- NOTE | 2018-02-22 18:44 | ER Document Report ---
ED GI/ - General Chief Complaint: Abdominal Pain Stated Complaint: SIDE PAIN Time Seen by Provider: 02/22/18 13:54 Mode of Arrival: Ambulatory Information source: Patient Notes: Patient is a 32-year-old male who is in mild to moderate distress at least mild to moderate pain and an uncomfortable. Complains of getting up this morning and having right lower and upper quadrant pain. Patient states that he took his to work came back started cooking and the pain got so bad he thought he was having some type of an upset stomach so he drank a little vodka thinking is going to kill the bacteria. He was getting ready for his in-laws coming over for Friday lunch. States that the pain started high in the right upper quadrant and traveled down to the lower quadrant and into his groin area at times. State is the worst pain ever and then it hurt to walk. He got nauseated but he did not have any vomiting and he did state that the pain was so bad he could not find a position of comfort he had to keep moving. Denied any dysuria or any hematuria. Has a history of hypertension takes medications for it. He does not smoke. TRAVEL OUTSIDE OF THE [place] IN LAST 30 DAYS: No - HPI Patient complains to provider of: Abdominal pain, Groin pain. No: Testicular pain Onset: This morning Timing/Duration: Sudden, Constant, Waxing and waning, Worse Quality of pain: Cramping, Sharp, Stabbing, Throbbing Severity at maximum: Severe Severity in ED: Moderate Pain Level: 4 Location: RUQ, RLQ, Low back. No: Left flank, Right flank Sexual history: Active, Unprotected intercourse Associated symptoms: Radiates to back Exacerbated by: Supine, Sitting, Standing, Movement, Walking, Coughing, Deep breathing Relieved by: Denies Similar symptoms previously: No Recently seen / treated by doctor: No - Related Data Allergies/Adverse Reactions: No Known Allergies Allergy (Verified 02/22/18 14:02) Past Medical History - General Information source: Patient - Social History Smoking Status: Never Smoker Cigarette use (# per day): No Chew tobacco use (# tins/day): No Smoking Education Provided: No Frequency of alcohol use: 1-2beers/daily Drug Abuse: None, Marijuana Family History: None, Reviewed & Not Pertinent Patient has suicidal ideation: No Patient has homicidal ideation: No - Past Medical History Cardiac Medical History: Reports: Hx Hypertension Neurological Medical History: Reports: Hx Migraine Renal/ Medical History: Denies: Hx Peritoneal Dialysis Musculoskeletal Medical History: Reports Hx Musculoskeletal Trauma - Back pain from previous injuries Past Surgical History: Reports: Hx Oral Surgery - Immunizations Hx Diphtheria, Pertussis, Tetanus Vaccination: No Review of Systems - Review of Systems Constitutional: No symptoms reported EENT: No symptoms reported Cardiovascular: No symptoms reported Respiratory: No symptoms reported Gastrointestinal: Abdominal pain, Nausea Genitourinary: No symptoms reported Male Genitourinary: No symptoms reported Musculoskeletal: No symptoms reported Skin: No symptoms reported Hematologic/Lymphatic: No symptoms reported Neurological/Psychological: No symptoms reported -: Yes All other systems reviewed and negative Physical Exam - Vital signs Vitals: Temp Pulse Resp BP Pulse Ox 98.5 F 92 20 149/91 H 96 02/22/18 13:50 02/22/18 13:50 02/22/18 13:50 02/22/18 13:50 02/22/18 13:50 Interpretation: Hypotensive - Notes Notes: Patient is a well-nourished well-developed morbidly obese male. He is 30 years of age. Patient on my physical exam shows to be somewhat agitated cannot find a place to sit stand he is just uncomfortable. - General General appearance: Alert, Anxious - HEENT Head: Normocephalic, Atraumatic Eyes: Normal - Respiratory Respiratory status: No respiratory distress Chest status: Nontender Breath sounds: Normal. No: Rales, Rhonchi, Stridor, Wheezing Chest palpation: Normal - Cardiovascular Rhythm: Regular Heart sounds: Normal auscultation Murmur: No - Abdominal Inspection: Normal Distension: Distended, Tympanitic, Other - Physical exam of the abdomen shows it to be extremely rotund abdomen. Very difficult to distinguish any organs at all. Patient has at this time no findings of discomfort or pain. Unable to palpate anything in the right lower quadrant right upper quadrant left upper quadrant or left lower quadrant. Also suprapubically there is no tenderness to palpation.. No: Fluid wave - Back Back: Normal, Nontender. No: Tender, Deformity/step-off, CVA tenderness, Vertebra tenderness, Scars - Extremities General upper extremity: Normal inspection, Nontender, Normal ROM, Normal strength General lower extremity: Normal inspection, Nontender, Normal ROM, Normal strength, Normal weight bearing. No: Barber's sign - Neurological Neuro grossly intact: Yes Cognition: Normal Orientation: AAOx4 [place] Coma Scale Eye Opening: Spontaneous [place] Coma Scale Verbal: Oriented [place] Coma Scale Motor: Obeys Commands [place] Coma Scale Total: 15 Speech: Normal - Skin Skin Temperature: Warm Skin Color: [place] Course - Re-evaluation Re-evalutation: 02/22/18 23:43 My physical exam was basically benign. Patient's labs all looked relatively decent. However there was no urine when I came back to look. Given patient's complaints to me more recently it sounds like he is having a kidney stone. When I asked him about history of it he told me he does have past history of kidney stones and that felt some similar. The point that I decided to do the CT was to confirm after the urine came back to have blood large amount in the urine. This was pretty much confirmatory but given patient's amount of discomfort and pain he was and I felt it necessary to do the CT for purposes of finding out if there was an obstruction. CT did not show an obstruction but showed mild hydronephrosis and mild hydroureter on the right side. There is a 3 mm stone at the distal UVJ. I was able to control patient's pain so I let him go home and have informed him to follow-up with his primary care doctor for referral to urology since we have no one on-call. Patient understood that he could come back to ER if the pain comes back. - Vital Signs Vital signs: Temp Pulse Resp BP Pulse Ox 98 F 88 16 138/88 H 100 02/22/18 19:25 02/22/18 19:25 02/22/18 19:25 02/22/18 19:25 02/22/18 19:25 - Laboratory Result Diagrams: 02/22/18 14:22 02/22/18 14:22 Laboratory results interpreted by me: 02/22/18 02/22/18 02/22/18 14:22 14:22 16:05 RBC 5.59 H RDW 14.1 H Carbon Dioxide 31 H Glucose 137 H Urine Protein 100 H Urine Blood LARGE H Urine Urobilinogen 2.0 H Discharge - Discharge Clinical Impression: Kidney stone on right side Condition: Stable Disposition: HOME, SELF-CARE Instructions: Abdominal Pain ([facility]), Kidney Stone ([facility]) Additional Instructions: You have a kidney stone that is about ready to fall into your bladder. He got through the worst part of the pain and discomfort and hopefully by Oksana at home it was a fall and into the bladder and he will have a problem. I am placing you on an antibiotic and a little medication for nausea as well as some pain medication and a pill that dilates your ureter so the stone should follow quicker. You the name of the urology group that is configuration specialist and if the pain continues you may contact them to see if they can accommodate you. Should you have any problems between now and then you return to ER for recheck. Prescriptions: Cephalexin Monohydrate [Keflex 500 mg Capsule] 500 mg PO Q6H 7 Days #28 capsule Hydrocodone/Acetaminophen [[place] 7.5-325 Tablet] 1 each PO Q4 #12 tablet Promethazine HCl 25 mg PO Q6 PRN #20 tablet PRN Reason: Tamsulosin HCl [Flomax] 0.4 mg PO DAILY #20 cap.er.24h Forms: Elevated Blood Pressure, Return to Work Referrals: WALTER JIMÉNEZ FNP [Primary Care Provider] - Follow up as needed
[2018-02-22 19:26] VITALS: BP 138/88
== END 2018-02-22 19:20 | disposition home or self-care (01) ==
LOC: ER 13:40
DX: N20.0 Calculus of kidney (principal); R10.31 Right lower quadrant pain; R10.11 Right upper quadrant pain; M54.5 Low back pain; I10 Essential (primary) hypertension
CPT/HCPCS: 99284; 96361; 96374; 96375; 36415; 80307; 83690; 85025; 80053; 81001; 76705; 74176; J2270; J2405; J7030

== ENCOUNTER 2018-11-16 16:08 | Emergency (ER) | payer OTHER ==
[2018-11-16 18:03] VITALS: BP 140/95
[2018-11-16] MEDS ORDERED: NORMAL SALINE 1000 ML 1,000 ML IV ONE (18:08)
--- NOTE | 2018-11-16 18:10 | ER Document Report ---
ED Medical Screen (RME) - General Chief Complaint: Pain All Over Stated Complaint: BODY CRAMPS,FATIGUE Time Seen by Provider: 11/16/18 18:04 Primary Care Provider: WALTER JIMÉNEZ FNP [Primary Care Provider] - Follow up as needed Mode of Arrival: Ambulatory Information source: Patient Notes: Patient presents emergency department with complaints of possibly dehydration. Reports increased thirst, fatigue body aches is not sweating, reports diarrhea that is more watery. Patient is a diabetic. He reports his sugars have been okay. Takes metformin. Patient is alert and oriented nontoxic looking. Respiratory rate even unlabored I have greeted and performed a rapid initial assessment of this patient. A comprehensive ED assessment and evaluation of the patient, analysis of test results and completion of the medical decision making process will be conducted by additional ED providers. Dictation of this chart was performed using voice recognition software; therefore, there may be some unintended grammatical errors. TRAVEL OUTSIDE OF THE [place] IN LAST 30 DAYS: No - Related Data Allergies/Adverse Reactions: No Known Allergies Allergy (Verified 11/16/18 16:09) Past Medical History - Past Medical History Cardiac Medical History: Reports: Hx Hypertension Neurological Medical History: Reports: Hx Migraine Renal/ Medical History: Denies: Hx Peritoneal Dialysis Musculoskeltal Medical History: Reports Hx Musculoskeletal Trauma - Back pain from previous injuries Past Surgical History: Reports: Hx Oral Surgery - Immunizations Hx Diphtheria, Pertussis, Tetanus Vaccination: No Physical Exam - Vital signs Vitals: Temp Pulse Resp BP Pulse Ox 97.9 F 86 20 140/95 H 97 11/16/18 17:16 11/16/18 17:16 11/16/18 17:16 11/16/18 17:16 11/16/18 17:16 Course - Vital Signs Vital signs: Temp Pulse Resp BP Pulse Ox 97.9 F 86 20 140/95 H 97 11/16/18 17:16 11/16/18 17:16 11/16/18 17:16 11/16/18 17:16 11/16/18 17:16 Doctor's Discharge - Discharge Referrals: WALTER JIMÉNEZ FNP [Primary Care Provider] - Follow up as needed
[2018-11-16 18:55] LABS: ABSOLUTE BASOPHILS # (AUTO) 0.1 10^3/uL (0.0-0.2); ABSOLUTE EOSINOPHILS # (AUTO) 0.2 10^3/uL (0.0-0.6); ABSOLUTE LYMPHOCYTES (AUTO) 2.5 10^3/uL (0.5-4.7); ABSOLUTE MONOCYTES (AUTO) 0.6 10^3/uL (0.1-1.4); BASOPHILS % (AUTO) 0.9 % (0-2); EOSINOPHILS % (AUTO) 2.6 % (0-6); HEMOGLOBIN 15.8 g/dL (13.5-17.0); LYMPHOCYTES % (AUTO) 34.4 % (13-45); MEAN CORPUSCULAR HEMOGLOBIN 28.4 pg (27.0-33.4); MEAN CORPUSCULAR HGB CONC 33.7 g/dL (32.0-36.0); MEAN CORPUSCULAR VOLUME 84 fl (80-97); MONOCYTES % (AUTO) 7.6 % (3-13); PLATELET COUNT 225 10^3/uL (150-450); RED BLOOD COUNT 5.57 10^6/uL (4.35-5.55); SEGMENTED NEUTROPHILS % (AUTO) 54.5 % (42-78); TOTAL CELLS COUNTED % (AUTO) 100 %; WHITE BLOOD COUNT 7.4 10^3/uL (4.0-10.5)
[2018-11-16 19:08] LABS: APPEARANCE,URINE CLEAR; BILIRUBIN,URINE NEGATIVE (NEGATIVE); COLOR,URINE YELLOW; GLUCOSE, URINE NEGATIVE (NEGATIVE); KETONES,URINE NEGATIVE (NEGATIVE); LEUKOCYTE ESTERASE,URINE NEGATIVE (NEGATIVE); NITRITE,URINE NEGATIVE (NEGATIVE); PROTEIN,URINE NEGATIVE (NEGATIVE); URINE SPECIFIC GRAVITY 1.019; UROBILINOGEN,URINE NEGATIVE mg/dL (<2.0)
[2018-11-16 19:12] LABS: ALANINE AMINOTRANSFERASE 67 U/L (21-72); ALBUMIN 4.9 g/dL (3.5-5.0); ALKALINE PHOSPHATASE 74 U/L (38-126); ANION GAP 9 (5-19); ASPARTATE AMINO TRANSFERASE 42 U/L (17-59); BILIRUBIN,DIRECT 0.2 mg/dL (0.0-0.4); BILIRUBIN,TOTAL 0.6 mg/dL (0.2-1.3); BLOOD UREA NITROGEN 10 mg/dL (7-20); CALCIUM 9.9 mg/dL (8.4-10.2); CARBON DIOXIDE 30 mmol/L (22-30); CHLORIDE 100 mmol/L (98-107); GLUCOSE 98 mg/dL (75-110); POTASSIUM 4.8 mmol/L (3.6-5.0); SODIUM 139.2 mmol/L (137-145); TOTAL PROTEIN 7.9 g/dL (6.3-8.2)
[2018-11-16] MEDS ORDERED: ONDANSETRON ODT 4 MG TAB (6 TAB/ER DISP) PO PRN (19:20)
--- NOTE | 2018-11-16 19:20 | ER Document Report ---
ED General - General Chief Complaint: Pain All Over Stated Complaint: BODY CRAMPS,FATIGUE Time Seen by Provider: 11/16/18 18:04 Primary Care Provider: WALTER JIMÉNEZ FNP [Primary Care Provider] - Follow up as needed Mode of Arrival: Ambulatory Notes: Patient presents emergency department with complaints of possibly dehydration. Reports increased thirst, fatigue body aches is not sweating, reports diarrhea that is more watery. Patient is a diabetic. He reports his sugars have been ok ay. Takes metformin. Patient is alert and oriented nontoxic looking. Respiratory rate even unlabored. Reports symptoms for the past 5 days. He reports he has been drinking fluids but not enough. TRAVEL OUTSIDE OF THE [place] IN LAST 30 DAYS: No - HPI Onset: Other - 5 days Quality of pain: Achy Pain Level: 1 Associated symptoms: Diarrhea, Nausea, Vomiting Exacerbated by: Denies Relieved by: Denies Similar symptoms previously: No Recently seen / treated by doctor: No - Related Data Allergies/Adverse Reactions: No Known Allergies Allergy (Verified 11/16/18 16:09) Past Medical History - General Information source: Patient - Social History Smoking Status: Never Smoker Cigarette use (# per day): No Frequency of alcohol use: glass wine daily Drug Abuse: Marijuana Family History: None, Reviewed & Not Pertinent Patient has suicidal ideation: No Patient has homicidal ideation: No - Past Medical History Cardiac Medical History: Reports: Hx Hypertension Neurological Medical History: Reports: Hx Migraine Endocrine Medical History: Reports: Hx Diabetes Mellitus Type 2 Renal/ Medical History: Reports: Hx Kidney Stones. Denies: Hx Peritoneal Dialysis Musculoskeletal Medical History: Reports Hx Musculoskeletal Trauma - Back pain from previous injuries Past Surgical History: Reports: Hx Oral Surgery - Immunizations Hx Diphtheria, Pertussis, Tetanus Vaccination: No Review of Systems - Review of Systems Notes: Review HPI for review of systems., All other systems negative Physical Exam - Vital signs Vitals: Temp Pulse Resp BP Pulse Ox 97.9 F 86 20 140/95 H 97 11/16/18 17:16 11/16/18 17:16 11/16/18 17:16 11/16/18 17:16 11/16/18 17:16 - Notes Notes: PHYSICAL EXAMINATION: GENERAL: Well-appearing and in no acute distress HEAD: Atraumatic, normocephalic. EYES: Pupils equal round extraocular movements intact, sclera anicteric, conjunctiva are normal. ENT: nares patent, . Moist mucous membranes. NECK: Normal range of motion, supple without lymphadenopathy LUNGS: CTAB and equal. No wheezes rales or rhonchi. HEART: Regular rate and rhythm without murmurs ABDOMEN: Soft, no tenderness. No guarding, no rebound EXTREMITIES: Normal range of motion, NEUROLOGICAL: Cranial nerves grossly intact. PSYCH: Normal mood, normal affect. SKIN: Warm, Dry, normal turgor, no rashes or lesions noted Course - Re-evaluation Re-evalutation: 11/16/18 20:20 Labs unremarkable. Patient reports he feels much better since IV fluids. Instructed on the importance of staying hydrated. Check his sugar on a regular basis return for concerns but definitely follow-up with his primary care provider. He verbalized understanding to all instructions. Dictation of this chart was performed using voice recognition software; therefore, there may be some unintended grammatical errors. - Vital Signs Vital signs: Temp Pulse Resp BP Pulse Ox 97.9 F 86 20 140/95 H 97 11/16/18 17:16 11/16/18 17:16 11/16/18 17:16 11/16/18 17:16 11/16/18 17:16 - Laboratory Result Diagrams: 11/16/18 18:40 11/16/18 18:40 Laboratory results interpreted by me: 11/16/18 18:40 RBC 5.57 H Discharge - Discharge Clinical Impression: Nausea vomiting and diarrhea Condition: Stable Disposition: HOME, SELF-CARE Instructions: Antinausea Medication ([facility]), Intravenous (IV) Fluids ([facility]), OTC Antidiarrhea Medication ([facility]), Viral Syndrome ([facility]), Vomiting ([facility]) Additional Instructions: *You have been evaluated for nausea/vomiting/diarrhea *Take medication as prescribed *Over the counter anti-diarrheal as indicated *Ensure adequate fluid intake as discussed to prevent dehydration *Follow up with a primary care provider within one week for recheck *Return to ED for worsening condition, changes, needs Referrals: WALTER JIMÉNEZ FNP [Primary Care Provider] - Follow up as needed
== END 2018-11-16 19:40 | disposition home or self-care (01) ==
LOC: ER 16:08
DX: R11.2 Nausea with vomiting, unspecified (principal); R19.7 Diarrhea, unspecified; R53.83 Other fatigue; F12.10 Cannabis abuse, uncomplicated; I10 Essential (primary) hypertension; E11.9 Type 2 diabetes mellitus without complications; Z79.84 Long term (current) use of oral hypoglycemic drugs; R63.1 Polydipsia
CPT/HCPCS: 36415; 80053; 81001; 85025; 99283